=== PATIENT | female | born 1965 | race Caucasian/White ===

== ENCOUNTER 2022-02-15 15:17 | Observation (INO) | payer OTHER ==
[2022-02-15 15:31] VITALS: BP 145/86; PULSE 118; TEMP 98; BMI 25.8
[2022-02-15] MEDS ORDERED: SODIUM CHLORIDE 1,000 ML IV STA (18:20)
[2022-02-15 20:56] LABS: BASO % 0.9 % (0-2.0); EOS % 0.8 % (0-4.5); HEMATOCRIT 39.5 % (32.4-45.2); HEMOGLOBIN 13.5 GM/dL (10.7-15.3); LYMPH % 48.2 % (8-40); MCH 35.6 pg (25.7-33.7); MCHC 34.1 g/dl (32.0-36.0); MEAN CELL VOLUME 104.5 fl (80-96); MEAN PLT VOLUME 7.4 fl (7.5-11.1); MONO % 6.3 % (3.8-10.2); NEUT % 43.8 % (42.8-82.8); PLATELET COUNT 364 10^3/uL (134-434); RBC 3.78 M/mm3 (3.60-5.2); RDW 12.7 % (11.6-15.6)
[2022-02-15 21:14] LABS: CALCIUM 9.2 mg/dL (8.5-10.1)
[2022-02-15 21:15] LABS: ALBUMIN 3.7 g/dl (3.4-5.0); BLOOD UREA NITROGEN 10.8 mg/dL (7-18); MAGNESIUM 2.1 mg/dL (1.8-2.4)
[2022-02-15 21:18] LABS: PHOSPHOROUS 4.5 mg/dL (2.5-4.9)
[2022-02-15 21:19] LABS: BILIRUBIN,TOTAL 0.2 mg/dL (0.2-1); TOT PROT 7.2 g/dl (6.4-8.2)
[2022-02-15] MEDS ORDERED: ACETAMINOPHEN 325 MG TABLET (FP) PO PRN (22:19)
[2022-02-15] MEDS ORDERED: POLYETHYLENE GLYCOL (HEALTHYLAX) 3350 17 GM PACKET PO PRN (22:19)
[2022-02-16] MEDS ORDERED: ENOXAPARIN NA (PORCINE) 40 MG/0.4 ML DISP.SYRIN SQ SCH (10:00)
== END 2022-02-16 03:45 | disposition left against medical advice (07) ==
LOC: JER 15:17 → JERBED 21:54
PROVIDERS: ADMIT Hospitalist; ATTEND Hospitalist
PROC: 3E0337Z Introduction of Electrolytic and Water Balance Substance into Peripheral Vein, Percutaneous Approach (ICD-10-PCS; principal; 2022-02-15)
DX: R55 Syncope and collapse (principal); F17.200 Nicotine dependence, unspecified, uncomplicated; Z28.310 Unvaccinated for COVID-19
CPT/HCPCS: 36415; 71046-TC-FY; 80053; 83735; 84100; 84443; 84484; 85025; 93005; 93010; 96360; 99285-25; G0378